=== PATIENT | male | born 1955 | race Caucasian/White ===

== ENCOUNTER 2016-08-07 11:54 | Inpatient (IN) | payer OTHER ==
[~2016-08-07] VITALS: Ht 152.4 cm; Wt 64.7 kg
[~2016-08-07 11:54] MED LIST: ACET-1256 PO; ACET-1311 PO; ALBU0.5N2 NEB; ALUMSUS2 PO; AMINLIQ2 PO; BISA1SUP4 RE; CARB1SOL8 OTL; CLR10 PO; DEXL30CA5 PO; DEXTSYP41 PO; DIMECRE; DLN/100 PO; DOCU-94 PO; FLM4 PO; IMD/2 PO; KPH250 PO; LACT1TAB4 PO; MENTOIN TOP; MRLP17X PO; MTHH1 PO; MULT-506 PO; NEOMOIN3 TOP; POTA1CAP2 PO; SENN-91 PO; SODIENE PR; STARPOW19
[2016-08-07] MEDS ORDERED: SODIUM CHLORIDE 0.9% 1000ML 1,000 ML IV STA ×2 (12:34)
--- NOTE | 2016-08-07 13:18 | DIAGNOSTIC IMAGING REPORT ---
SINGLE VIEW CHEST CLINICAL HISTORY: Generalized weakness. FINDINGS: An AP, portable, upright chest radiograph is compared to study dated 06/07/2014 and correlated with chest CT dated 12/19/2012. The examination is significantly degraded by portable technique and patient rotation. The heart is top normal for projection. There is prominence of the central pulmonary vasculature. There is minimal bibasilar atelectasis. No airspace consolidation is seen typical for pneumonia and there is no large pleural effusion. No pneumothorax is seen. The skeletal structures are osteopenic. The bony thorax is grossly intact. IMPRESSION: 1. There is prominence of the central pulmonary vasculature. Cortical clinically for evidence of mild congestive failure. 2. No airspace consolidation is seen typical for pneumonia and there is no large pleural effusion. Electronically signed by: Lucius Stiles M.D. 08/07/2016 1:17 PM Dictated Date/Time: 08/07/2016 1:15 PM
[2016-08-07] MEDS ORDERED: POTA10TA PO (13:29)
[2016-08-07] MEDS ORDERED: CARV3.122 PO (13:29)
[2016-08-07] MEDS ORDERED: ZNTT/150 PO (13:29)
[2016-08-07] MEDS ORDERED: LOSA1TAB PO (13:29)
[2016-08-07] MEDS ORDERED: MTHH1 PO (13:29)
[2016-08-07] MEDS ORDERED: MULTTAB63 PO (13:36)
[2016-08-07] MEDS ORDERED: IPRASOL4 INH (13:43)
[2016-08-07] MEDS ORDERED: ALUM-30 PO (13:43)
[2016-08-07 13:48] LABS: URINE APPEARANCE CLOUDY (CLEAR); URINE BILIRUBIN NEG (NEG); URINE COLOR DK YELLOW; URINE EPITHELIAL CELL AUTO >30 /lpf (0-5); URINE NITRITE POS (NEG); URINE PH 6.5 (4.5-7.5); URINE SPECIFIC GRAVITY 1.025 (1.000-1.030); UROBILINOGEN NEG (NEG)
[2016-08-07 14:01] LABS: MANUAL MICROSCOPIC REQUIRED? NO; REVIEW REQ? YES
[2016-08-07 14:01] LABS: ALT/SGPT 14 U/L (12-78); BLOOD UREA NITROGEN 17 mg/dl (7-18); BUN/CREATININE RATIO 15.7 (10-20); CALCIUM 8.5 mg/dl (8.5-10.1); CARBON DIOXIDE 27 mmol/L (21-32); CHLORIDE 116 mmol/L (98-107); GLUCOSE 123 mg/dl (70-99); MAGNESIUM 2.5 mg/dl (1.8-2.4); POTASSIUM 3.8 mmol/L (3.5-5.1); SODIUM 150 mmol/L (136-145)
[2016-08-07 14:03] LABS: BASO % 0.2 %; BASO ABS # 0.03 K/uL (0-0.2); COMPLETE YES; EOS % 0.2 %; HEMATOCRIT 41.4 % (42-52); IG% 0.4 %; LYMPH % 9.4 %; LYMPH ABS # 1.53 K/uL (1.2-3.4); MEAN CELL VOLUME 104.8 fL (80-100); MEAN CORPUSCULAR HEMOGLOBIN 35.7 pg (25-34); MEAN CORPUSCULAR HGB CONC 34.1 g/dl (32-36); MEAN PLATELET VOLUME 10.3 fL (7.4-10.4); MONO % 3.4 %; NEUT % 86.4 %; PLATELET COUNT 300 K/uL (130-400); RED BLOOD COUNT 3.95 M/uL (4.7-6.1); WHITE BLOOD COUNT 16.32 K/uL (4.8-10.8)
[2016-08-07 14:11] LABS: ALKALINE PHOSPHATASE 126 U/L (45-117); AST/SGOT 9 U/L (15-37); THYROID STIMULATING HORMONE 0.961 uIu/ml (0.300-4.500)
[2016-08-07] MEDS ORDERED: SODIUM CHLORIDE 0.9% 500ML 500 ML IV STA (14:45)
[2016-08-07] MEDS ORDERED: CEFTRIAXONE SOD INJ 1 GM ADDVIAL IV STA (14:45)
[2016-08-07 15:18] VITALS: Ht 152.4 cm; Wt 64.7 kg
--- NOTE | 2016-08-07 15:46 | EMERGENCY ROOM VISIT NOTE ---
History Report prepared by Hussain: Christopher Bella Under the Supervision of: Dr. Anuel Valverde M.D. First contact with patient: 12:29 Chief Complaint: ILLNESS Stated Complaint: AMS/FEVER/NYPOTENSION History of Present Illness The patient is a 61 year old male who presents to the Emergency Room with complaints of acute altered mental status. The patient came to the ED from [facility]. Their records indicate that the patient became altered last night. He also had a "gurgling episode" when the nurses were feeding him last night. The patient was febrile upon arrival, per ED nurse. He is nonverbal at baseline but has become less responsive. He has a chronic urinary catheter in place. Complete history is limited secondary to unresponsiveness. Source of History: transfer records, nursing staff History Limited By: other (unresponsiveness) Onset: last night Position: other (mentation) Quality: other (altered mental status) Timing: other (acute) Associated Symptoms: + fevers Review of Systems ROS is limited secondary to unresponsiveness. Past Medical & Surgical Medical Problems: (1) Blind (2) Down syndrome (3) DVT of lower extremity, bilateral (4) Graves disease (5) MRSA (methicillin resistant Staphylococcus aureus) (6) Neurogenic bladder (7) Recurrent UTI (8) Seizures (9) Urinary retention Surgical Problems: (1) History of total right hip replacement (2) S/P IVC filter (3) S/P TURP Family History Cancer Hypertension Kidney disease Kidney stones Social History Smoking Status: Never Smoker Alcohol Use: none Drug Use: none Housing Status: other Current/Historical Medications Scheduled Acetaminophen (Tylenol), 500 MG PO TID Carvedilol (Coreg), 3.125 MG PO Q12 Loratadine (Claritin), 10 MG PO QAM Losartan Potassium (Cozaar), 25 MG PO QAM Methenamine Hippurate (Methenamine Hippurate), 1 GM PO QAM Multiple Vitamins W/ Minerals (Therems M), 1 TAB PO QAM Phenytoin Sodium (Dilantin), 100 MG PO TID Phosphorus (K-Phos Neutral), 250 MG PO BID Potassium Chloride (K-Tabs), 10 MEQ PO DAILY Ranitidine (Zantac), 150 MG PO HS Sennosides-Docusate Sodium (Senna S), 1 TAB PO QAM Scheduled PRN Acetaminophen (Tylenol), 650 MG PO Q6 PRN for Pain or Fever Alum & Mag Hydrox-Simethicone (Mylanta), 30 ML PO BID PRN for DYSPEPSIA Bisacodyl (Bisacodyl Laxative), 10 MG RE DAILY PRN for Constipation Ipratropium-Albuterol (Duoneb), 1 TREATMENT INH Q8 PRN for Cough Sodium Phosphate/Biphosphate (Fleet Enema), 1 EA WA UD PRN for no bm after suppository Allergies Coded Allergies: Iodine (Verified Allergy, Unknown, 09/05/15) Oxycodone (Verified Allergy, Unknown, TOLERATES ACETAMINOPHEN, 09/05/15) Grapefruit (Verified Adverse Reaction, Unknown, Avoids grapefruit r/t contraindication w/ meds., 09/05/15) Uncoded Allergies: PERFUMES AND DYES (Allergy, Unknown, unk, 09/05/15) Physical Exam Vital Signs Date Time Temp Pulse Resp B/P Pulse Ox O2 Delivery O2 Flow Rate FiO2 08/07/16 15:18 Nasal Cannula 08/07/16 15:00 93 16 109/73 95 08/07/16 14:31 109/64 08/07/16 14:30 84 14 97 08/07/16 14:00 90 14 122/79 99 08/07/16 13:40 89 16 142/90 99 Nasal Cannula 2.0 08/07/16 13:13 94 20 125/86 95 Room Air 08/07/16 12:46 93 21 109/79 96 Nasal Cannula 2.0 08/07/16 12:38 94 Nasal Cannula 08/07/16 12:19 96 24 120/80 93 Nasal Cannula 2.0 08/07/16 12:14 94 Nasal Cannula 2.0 08/07/16 12:13 88 Room Air 08/07/16 12:02 37.7 105 26 130/81 94 Room Air 08/07/16 12:02 103 Physical Exam GENERAL: Sleepy but semi-arousable to verbal stimuli, in no distress. HENT: Normocephalic, atraumatic. Oropharynx unremarkable. EYES: Normal conjunctiva. Sclera non-icteric. Cornea are opacified bilaterally. NECK: Supple. No nuchal rigidity. FROM. No JVD. RESPIRATORY: Scattered rhonchi. CARDIAC: Tachycardic, normal rhythm. Extremities warm and well perfused. Pulses equal. ABDOMEN: Soft, non-distended. No tenderness to palpation. No rebound or guarding. No masses. RECTAL: Deferred. MUSCULOSKELETAL: Chest examination reveals no tenderness. The back is symmetrical on inspection without obvious abnormality. There is no CVA tenderness to palpation. No joint edema. LOWER EXTREMITIES: 1+ lower extremity edema. Calves are equal size bilaterally and non-tender. No discoloration. NEURO: Altered sensorium. No sensory or motor deficits noted. SKIN: No rash or jaundice noted. Medical Decision & Procedures ER Provider Diagnostic Interpretation: X-ray: Per my interpretation, radiologist review. SINGLE VIEW CHEST CLINICAL HISTORY: Generalized weakness. FINDINGS: An AP, portable, upright chest radiograph is compared to study dated 06/07/2014 and correlated with chest CT dated 12/19/2012. The examination is significantly degraded by portable technique and patient rotation. The heart is top normal for projection. There is prominence of the central pulmonary vasculature. There is minimal bibasilar atelectasis. No airspace consolidation is seen typical for pneumonia and there is no large pleural effusion. No pneumothorax is seen. The skeletal structures are osteopenic. The bony thorax is grossly intact. IMPRESSION: 1. There is prominence of the central pulmonary vasculature. Cortical clinically for evidence of mild congestive failure. 2. No airspace consolidation is seen typical for pneumonia and there is no large pleural effusion. Electronically signed by: Lucius Stiles M.D. 08/07/2016 1:17 PM Dictated Date/Time: 08/07/2016 1:15 PM Laboratory Results 08/07/16 13:10 Red Blood Count 3.95, Mean Corpuscular Volume 104.8, Mean Corpuscular Hemoglobin 35.7, Mean Corpuscular Hemoglobin Concent 34.1, Mean Platelet Volume 10.3, Neutrophils (%) (Auto) 86.4, Lymphocytes (%) (Auto) 9.4, Monocytes (%) ( Auto) 3.4, Eosinophils (%) (Auto) 0.2, Basophils (%) (Auto) 0.2, Neutrophils # ( Auto) 14.12, Lymphocytes # (Auto) 1.53, Monocytes # (Auto) 0.55, Eosinophils # ( Auto) 0.03, Basophils # (Auto) 0.03 08/07/16 13:10 Test 08/07/16 12:58 08/07/16 13:08 08/07/16 13:10 08/07/16 13:16 Influenza Type A Antigen Neg for Influ A (NEG) Influenza Type B Antigen Neg for Influ B (NEG) Bedside Lactic Acid Venous 1.41 mmol/L (0.90-1.70) White Blood Count 16.32 K/uL (4.8-10.8) Red Blood Count 3.95 M/uL (4.7-6.1) Hemoglobin 14.1 g/dL (14.0-18.0) Hematocrit 41.4 % (42-52) Mean Corpuscular Volume 104.8 fL (80-100) Mean Corpuscular Hemoglobin 35.7 pg (25-34) Mean Corpuscular Hemoglobin Concent 34.1 g/dl (32-36) Platelet Count 300 K/uL (130-400) Mean Platelet Volume 10.3 fL (7.4-10.4) Neutrophils (%) (Auto) 86.4 % Lymphocytes (%) (Auto) 9.4 % Monocytes (%) (Auto) 3.4 % Eosinophils (%) (Auto) 0.2 % Basophils (%) (Auto) 0.2 % Neutrophils # (Auto) 14.12 K/uL (1.4-6.5) Lymphocytes # (Auto) 1.53 K/uL (1.2-3.4) Monocytes # (Auto) 0.55 K/uL (0.11-0.59) Eosinophils # (Auto) 0.03 K/uL (0-0.5) Basophils # (Auto) 0.03 K/uL (0-0.2) RDW Standard Deviation 62.0 fL (36.4-46.3) RDW Coefficient of Variation 16.1 % (11.5-14.5) Immature Granulocyte % (Auto) 0.4 % Immature Granulocyte # (Auto) 0.06 K/uL (0.00-0.02) Anion Gap 7.0 mmol/L (3-11) Est Creatinine Clear Calc Drug Dose 57.2 ml/min Estimated GFR () 84.7 Estimated GFR (Non- 73.1 BUN/Creatinine Ratio 15.7 (10-20) Calcium Level 8.5 mg/dl (8.5-10.1) Magnesium Level 2.5 mg/dl (1.8-2.4) Total Bilirubin 0.3 mg/dl (0.2-1) Direct Bilirubin < 0.1 mg/dl (0-0.2) Aspartate Amino Transf (AST/SGOT) 9 U/L (15-37) Alanine Aminotransferase (ALT/SGPT) 14 U/L (12-78) Alkaline Phosphatase 126 U/L (45-117) Troponin I < 0.015 ng/ml (0-0.045) Total Protein 7.5 gm/dl (6.4-8.2) Albumin 2.7 gm/dl (3.4-5.0) Lipase 65 U/L (73-393) Thyroid Stimulating Hormone (TSH) 0.961 uIu/ml (0.300-4.500) Urine Color DK YELLOW Urine Appearance CLOUDY (CLEAR) Urine pH 6.5 (4.5-7.5) Urine Specific [place] 1.025 (1.000-1.030) Urine Protein 2+ (NEG) Urine Glucose (UA) NEG (NEG) Urine Ketones NEG (NEG) Urine Occult Blood 3+ (NEG) Urine Nitrite POS (NEG) Urine Bilirubin NEG (NEG) Urine Urobilinogen NEG (NEG) Urine Leukocyte Esterase LARGE (NEG) Urine WBC (Auto) >30 /hpf (0-5) Urine RBC (Auto) >30 /hpf (0-4) Urine Hyaline Casts (Auto) /lpf (0-5) Urine Epithelial Cells (Auto) >30 /lpf (0-5) Urine Bacteria (Auto) 1+ (NEG) Urine Pathogenic Casts /lpf (0) Laboratory results reviewed by me Medications Administered Medications (Trade) Dose Ordered Sig/Isaak Route Start Time Stop Time Status Last Admin Dose Admin Sodium Chloride 1,000 ml @ 125 mls/hr Q8H STAT IV 08/07/16 12:34 08/07/16 20:33 08/07/16 13:40 125 MLS/HR Sodium Chloride 1,000 ml @ 999 mls/hr Q1H1M STAT IV 08/07/16 12:34 08/07/16 13:34 DC 08/07/16 12:43 999 MLS/HR Sodium Chloride (Nss 500ml) 500 ml @ 999 mls/hr Q31M STAT IV 08/07/16 14:45 08/07/16 15:15 DC 08/07/16 15:24 999 MLS/HR Ceftriaxone Sodium (Rocephin Inj) 1 gm NOW STAT IV 08/07/16 14:45 08/07/16 14:46 DC 08/07/16 15:23 1 GM ECG Indication: altered mental status Rate (beats per minute): 104 Rhythm: sinus tachycardia Findings: no acute ischemic change, no ectopy, other (LVH) ED Course 1233: The patient was evaluated in room B1. A complete history and physical exam was performed. 1234: NSS 1000 ml @ 999 mls/hr, NSS 1000 ml @ 125 mls/hr. 1400: The patient was moved to room B12b. He is more responsive now. 1445: Rocephin 1 gm IV, NSS 500 ml @ 999 mls/hr. 1456: Discussed the case with Dr. Finch [facility]. The patient will be evaluated. Medical Decision Prior records/ancillary studies reviewed and summarized above. Nursing notes reviewed and agree them. The patient's history was concerning for altered mental status. Differential diagnosis: Etiologies such as infection, hypoglycemia, electrolyte abnormalities, cardiac sources, intracerebral event, toxicologic, neurologic, as well as others were entertained. Physical examination: As above. ER treatment provided: IV Lock Normal saline hydration with improvement of his mental status IV Rocephin On reassessment the patient felt better. Diagnostics interpretation by me: ECG: Nonischemic The labs revealed a mild leukocytosis. His catheter panel was unremarkable. His urinalysis revealed signs of infection. Cardiac markers negative. Lactate negative. Blood and urine cultures pending. Imaging studies: Chest x-ray as above Consultation: A consultation was placed with the hospitalist. The case was discussed and diagnostics were reviewed. The patient was evaluated in the ER for further treatment. The chart was completed utilizing [employer] Speech voice recognition software. Grammatical errors, random word insertions, pronoun errors, and incomplete sentences are an occasional consequence of this system due to software limitations, ambient noise, and hardware issues. Any formal questions or concerns about the content, text, or information contained within the body of this dictation should be directly addressed to the physician for clarification. Consults Time Called: 1450 Consulting Physician: Dr. Finch [facility]. Returned Call: [phone]: Discussed the case with Dr. Finch, [facility] Hospitalist. The patient will be evaluated. Impression Primary Impression: Altered mental status Additional Impression: UTI (urinary tract infection) Scribe Attestation The scribe's documentation has been prepared under my direction and personally reviewed by me in its entirety. I confirm that the note above accurately reflects all work, treatment, procedures, and medical decision making performed by me. Departure Information Dispostion Being Evaluated By Hospitalist Referrals WallaceSummer (PCP) Patient Instructions My [facility] Health Problem Qualifiers
[2016-08-07] MEDS ORDERED: ACETAMINOPHEN 325 MG TAB PO PRN (16:00)
[2016-08-07] MEDS ORDERED: ONDANSETRON INJ 2 MG/ML 2 ML VIAL IV PRN (16:00)
[2016-08-07] MEDS: DEXTROSE 5% 1000ML 1,000 ML IV SCH ×2 (16:30→20:44)
--- NOTE | 2016-08-07 16:33 | History and Physical ---
History & Physical Date & Time of Service: Aug 07, 2016 at 16:09 Chief Complaint: Ams/Fever/Nypotension Primary Care Physician: Summer Motta History of Present Illness Source: hospital records, other ([facility] records) This patient is a 61-year-old male with severe intellectual impairment that resides at [facility] who is reportedly transferred to the emergency department with worsening mental status and poor oral intake. The patient reportedly would not eat for the staff yesterday which is new. He also was more lethargic. The patient had a baseline is nonverbal, blind and bedbound. The reported temperature from outpatient records was 37.6. The staff did note that he was choking and gurgling while trying to take his pills yesterday. There were no reports of hypoxia. There is no obtainable history from the patient as he is nonverbal. The patient has a history of neurogenic bladder with an indwelling Barnes catheter. Workup in the emergency department is consistent for leukocytosis of 16,000. Sodium is 150. Urine appears infected. The patient has no family. his legal guardian per court order is Amicus. He is listed as a full code. 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 Surgical Problems: (1) History of total right hip replacement Status: Chronic (2) S/P IVC filter Status: Chronic (3) S/P TURP Status: Chronic Family History Cancer Hypertension Kidney disease Kidney stones Unobtainable Social History Smoking Status: Never Smoker Drug Use: none Housing status: [facility] ([facility]) Immunizations History of Influenza Vaccine: Yes Influenza Vaccine Date: Jan 25, 2015 History of Tetanus Vaccine?: Yes Tetanus Immunization Date: Oct 20, 2009 Pneumococcal Date: Feb 19, 2010 Multi-Drug Resistant Organisms History of MDRO: Yes Type of MDRO: MRSA Allergies Coded Allergies: Iodine (Verified Allergy, Unknown, 09/05/15) Oxycodone (Verified Allergy, Unknown, TOLERATES ACETAMINOPHEN, 09/05/15) Grapefruit (Verified Adverse Reaction, Unknown, Avoids grapefruit r/t contraindication w/ meds., 09/05/15) Uncoded Allergies: PERFUMES AND DYES (Allergy, Unknown, unk, 09/05/15) Home Medications Scheduled Acetaminophen (Tylenol), 500 MG PO TID Carvedilol (Coreg), 3.125 MG PO Q12 Loratadine (Claritin), 10 MG PO QAM Losartan Potassium (Cozaar), 25 MG PO QAM Methenamine Hippurate (Methenamine Hippurate), 1 GM PO QAM Multiple Vitamins W/ Minerals (Therems M), 1 TAB PO QAM Phenytoin Sodium (Dilantin), 100 MG PO TID Phosphorus (K-Phos Neutral), 250 MG PO BID Potassium Chloride (K-Tabs), 10 MEQ PO DAILY Ranitidine (Zantac), 150 MG PO HS Sennosides-Docusate Sodium (Senna S), 1 TAB PO QAM Scheduled PRN Acetaminophen (Tylenol), 650 MG PO Q6 PRN for Pain or Fever Alum & Mag Hydrox-Simethicone (Mylanta), 30 ML PO BID PRN for DYSPEPSIA Bisacodyl (Bisacodyl Laxative), 10 MG RE DAILY PRN for Constipation Ipratropium-Albuterol (Duoneb), 1 TREATMENT INH Q8 PRN for Cough Sodium Phosphate/Biphosphate (Fleet Enema), 1 EA KS UD PRN for no bm after suppository Review of Systems Unobtainable Physical Exam Vital Signs Date Time Temp Pulse Resp B/P Pulse Ox O2 Delivery O2 Flow Rate FiO2 08/07/16 15:18 Nasal Cannula 08/07/16 15:00 93 16 109/73 95 08/07/16 14:31 109/64 08/07/16 14:30 84 14 97 08/07/16 14:00 90 14 122/79 99 08/07/16 13:40 89 16 142/90 99 Nasal Cannula 2.0 08/07/16 13:13 94 20 125/86 95 Room Air 08/07/16 12:46 93 21 109/79 96 Nasal Cannula 2.0 08/07/16 12:38 94 Nasal Cannula 08/07/16 12:19 96 24 120/80 93 Nasal Cannula 2.0 08/07/16 12:14 94 Nasal Cannula 2.0 08/07/16 12:13 88 Room Air 08/07/16 12:02 37.7 105 26 130/81 94 Room Air 08/07/16 12:02 103 General Appearance: + pertinent finding (61 y/o male, no acute distress. Unresponsive to verbal stimuli) Eyes: + pertinent finding (scarring noted over corneas bilaterally) ENT: + pertinent finding (orange colored plaque noted on the ) Neck: no JVD Respiratory/Chest: lungs clear Cardiovascular: + tachycardia (mildly tachycardic. No murmur.) Abdomen/GI: normal bowel sounds, soft, + pertinent finding (focal tenderness appreciated.) Extremities/Musculoskelatal: no pedal edema, + pertinent finding (large well- healed incisional scar noted over the right lateral hip.) Neurologic/Psych: + pertinent finding (patient does not respond to verbal stimuli. He is moving his upper extremities. He does move extremities one sternal rub was performed.) Skin: warm/dry, + pertinent finding (pale) Diagnostics Laboratory Results Results Past 24 Hours Test 08/07/16 12:58 08/07/16 13:08 08/07/16 13:10 08/07/16 13:16 Range/Units Influenza Type A Antigen Neg for Influ A NEG Influenza Type B Antigen Neg for Influ B NEG Bedside Lactic Acid Venous 1.41 0.90-1.70 mmol/L White Blood Count 16.32 4.8-10.8 K/uL Red Blood Count 3.95 4.7-6.1 M/uL Hemoglobin 14.1 14.0-18.0 g/dL Hematocrit 41.4 42-52 % Mean Corpuscular Volume 104.8 80-100 fL Mean Corpuscular Hemoglobin 35.7 25-34 pg Mean Corpuscular Hemoglobin Concent 34.1 32-36 g/dl Platelet Count 300 130-400 K/uL Mean Platelet Volume 10.3 7.4-10.4 fL Neutrophils (%) (Auto) 86.4 % Lymphocytes (%) (Auto) 9.4 % Monocytes (%) (Auto) 3.4 % Eosinophils (%) (Auto) 0.2 % Basophils (%) (Auto) 0.2 % Neutrophils # (Auto) 14.12 1.4-6.5 K/uL Lymphocytes # (Auto) 1.53 1.2-3.4 K/uL Monocytes # (Auto) 0.55 0.11-0.59 K/uL Eosinophils # (Auto) 0.03 0-0.5 K/uL Basophils # (Auto) 0.03 0-0.2 K/uL RDW Standard Deviation 62.0 36.4-46.3 fL RDW Coefficient of Variation 16.1 11.5-14.5 % Immature Granulocyte % (Auto) 0.4 % Immature Granulocyte # (Auto) 0.06 0.00-0.02 K/uL Sodium Level 150 136-145 mmol/L Potassium Level 3.8 3.5-5.1 mmol/L Chloride Level 116 98-107 mmol/L Carbon Dioxide Level 27 21-32 mmol/L Anion Gap 7.0 3-11 mmol/L Blood Urea Nitrogen 17 7-18 mg/dl Creatinine 1.10 0.60-1.40 mg/dl Est Creatinine Clear Calc Drug Dose 57.2 ml/min Estimated GFR () 84.7 Estimated GFR (Non- 73.1 BUN/Creatinine Ratio 15.7 10-20 Random Glucose 123 70-99 mg/dl Calcium Level 8.5 8.5-10.1 mg/dl Magnesium Level 2.5 1.8-2.4 mg/dl Total Bilirubin 0.3 0.2-1 mg/dl Direct Bilirubin < 0.1 0-0.2 mg/dl Aspartate Amino Transf (AST/SGOT) 9 15-37 U/L Alanine Aminotransferase (ALT/SGPT) 14 12-78 U/L Alkaline Phosphatase 126 45-117 U/L Troponin I < 0.015 0-0.045 ng/ml Total Protein 7.5 6.4-8.2 gm/dl Albumin 2.7 3.4-5.0 gm/dl Lipase 65 73-393 U/L Thyroid Stimulating Hormone (TSH) 0.961 0.300-4.500 uIu/ml Urine Color DK YELLOW Urine Appearance CLOUDY CLEAR Urine pH 6.5 4.5-7.5 Urine Specific [place] 1.025 1.000-1.030 Urine Protein 2+ NEG Urine Glucose (UA) NEG NEG Urine Ketones NEG NEG Urine Occult Blood 3+ NEG Urine Nitrite POS NEG Urine Bilirubin NEG NEG Urine Urobilinogen NEG NEG Urine Leukocyte Esterase LARGE NEG Urine WBC (Auto) >30 0-5 /hpf Urine RBC (Auto) >30 0-4 /hpf Urine Hyaline Casts (Auto) 0-5 /lpf Urine Epithelial Cells (Auto) >30 0-5 /lpf Urine Bacteria (Auto) 1+ NEG Urine Pathogenic Casts 0 /lpf Test 08/07/16 15:54 Range/Units Microbiology Results 08/07/16 Blood Culture, Received Pending 08/07/16 Blood Culture, Received Pending 08/07/16 Urine Culture, Received Pending Diagnostic Radiology Patient: MEE NORWOOD Address1: [address] [place] [address] Rec: [id number] Address2: Acct ID: [id number] [facility] Zip: [place] [address] Date: 1955 Sex: M Room/Bed: Ref Phy: Maximus Chowdary M.D. SC: TIM Att Phy: Report #: [id number] Leslie Phy: [employer] [place] Test: CXR1P Admit Phy: Director Of Recruiting: FITO Interpreting Phy: Lucius Stiles M.D. Diagnosis: AMS/FEVER/NYPOTENSION Ordering Phy: Anuel Valverde MD Service Date: 08/07/16 Admit Date: 08/07/16 MNE: [id number] CONF: DICTATED BY: Lucius Stiles M.D.]] CC: [facility] Maximus Chowdary M.D. Maciejczyk, John F., MD Endcc: [~ rep ct add3]] SINGLE VIEW CHEST CLINICAL HISTORY: Generalized weakness. FINDINGS: An AP, portable, upright chest radiograph is compared to study dated 06/07/2014 and correlated with chest CT dated 12/19/2012. The examination is significantly degraded by portable technique and patient rotation. The heart is top normal for projection. There is prominence of the central pulmonary vasculature. There is minimal bibasilar atelectasis. No airspace consolidation is seen typical for pneumonia and there is no large pleural effusion. No pneumothorax is seen. The skeletal structures are osteopenic. The bony thorax is grossly intact. IMPRESSION: 1. There is prominence of the central pulmonary vasculature. Cortical clinically for evidence of mild congestive failure. 2. No airspace consolidation is seen typical for pneumonia and there is no large pleural effusion. Electronically signed by: Lucius Stiles M.D. 08/07/2016 1:17 PM Dictated Date/Time: 08/07/2016 1:15 PM The status of this report is Signed. Draft = Not yet reviewed or approved by Radiologist. Signed = Reviewed and approved by Radiologist. <AttendingPhy></AttendingPhy> <FamilyPhy>Maximus Chowdary M.D.</FamilyPhy > <PrimaryPhy>[facility]</PrimaryPhy> <UnitNumber>[id number]</UnitNumber> < VisitNumber>[id number]</VisitNumber> <PatientName>MEE NORWOOD</PatientName > <DateOfBirth>1955</DateOfBirth> <Location>C.EDB</Location> <ServiceDate> 08/07/16</ServiceDate> <MNE>ESINDI</MNE> <OrderingPhy>Anuel Valverde MD</ OrderingPhy> <OrderingPhyMNE>f EKG Sinus tachycardia 104 bpm Impression Assessment and Plan 61-year-old male with significant intellectual impairment, Down syndrome transferred to the emergency department with reportedly altered mental status. Metabolic encephalopathy likely secondary to UTI-CAUTI. Cannot rule out aspiration pneumonia with a reported history of the patient choking on his chocolate milk and pills -Broad-spectrum antibiotic coverage with vancomycin and Zosyn -Repeat chest x-ray in the morning -Follow urine culture. Patient grew out Proteus mirabilis in March 2016 -Follow CBC -Speech eval. -NPO for now Hypernatremia-likely secondary to dehydration -Change IV fluids to D5W @ 100 cc per hour -Recheck PRP today at 1900 hrs. History of seizure disorder -Change home dose of Dilantin 100 mg po TID to IV for now as the patient is not taking po -Check Dilantin level Pressure ulcer on the buttock stage II -Wound consult placed Hypertension -Patient's outpatient regimen is typically carvedilol 3.125 mg po BID--> substitute metoprolol IV for now -He also takes Cozaar 25 mg po QAM--> this will additionally be held Hydralazine 10 mg IV q 6 hr PRN History of neurogenic bladder/urinary retention with indwelling Barnes catheter -barnes changed in ER Hx Graves dz -TSH WNL in the ER Hx DVT-IVC filter in place -proph heparin CODE STATUS -LEVEL I FULL CODE THIS NEEDS TO BE ADDRESSED GIVE POOR QUALITY OF LIFE Advanced Directives Existing Living Will: Yes Existing Power of Roller Skates Assembler: No (unsure) Resuscitation Status FULL RESUSCITATION VTE Prophylaxis VTE Risk Assessment Done? Y/N: Yes Risk Level: Moderate Given or contraindicated: Unfractionated heparin SQ, T.E.D. Stockings, SCD's Reviewed: Pt Seen/Exam by Me History Physician Airplane Inspector Supervision Note: I interviewed and examined the patient. Discussed with VICKY Grant and agree with findings and plan as documented in the note. Any exceptions or clarifications are listed here: Patient is a 61-year-old male with Down syndrome, who is nonverbal and bedbound as well as legally blind. He was brought in for being less responsive and not able to take any medications or food by mouth due to altered mental status. He was found to have grossly abnormal urine in his Barnes was exchanged in the ER. He is also hypernatremic and dehydrated with hypotension. An elevated white blood cell count of 16. He was given normal saline boluses in the ER and then switched to D5W upon admission. Repeat chemistry later on this evening showed slight worsening of his hypernatremia to a sodium of 152 and chloride of 122, probably related to being given normal saline earlier. Review of previous admission shows a severely low a.m. cortisol level of 1 in the past. Vital signs reviewed and is hypotensive at times Lying in bed, does respond to tactile stimulation, but is nonverbal, does not follow commands, has eyes closed Oropharynx with severely dry mucous membranes Regular rate and rhythm no murmurs gallops or rubs Clear to auscultation bilaterally breathing is unlabored no wheezes crackles or rhonchi Abdomen soft nontender nondistended positive bowel sounds Extremities no edema, 1+ distalis pedis pulses bilaterally Skin no rashes 61-year-old male with severe intellectual disability and Down syndrome, bedbound with chronic indwelling Barnes catheter, here with UTI and sepsis, acute metabolic encephalopathy. He has a history of MRSA in the past and comes from a [facility]. -Start IV Zosyn and IV vancomycin and follow vancomycin troughs -Follow CBC, leukocytosis 30 improving -For his hypernatremia, will continue D5W at 100 mL's per hour and repeat PRP in the morning -Follow urine and blood cultures -Repeat chest x-ray in the morning to ensure no development of aspiration pneumonia given difficulty swallowing and gurgling on his chocolate milk at the [facility] prior to admission-chest x-ray may have been clear today due to severe dehydration Documented By: Stormy Finch
[2016-08-07] MEDS ORDERED: VANCOMYCIN CONSULT ACTIVE PRN (16:45)
[2016-08-07] MEDS ORDERED: HydrALAZINE HCL 20 MG/ML VIAL IV. PRN (16:45)
[2016-08-07] MEDS ORDERED: ACETAMINOPHEN 325 MG SUPP PR PRN (17:00)
[2016-08-07] MEDS ORDERED: VANCOMYCIN INJ 1,600 MG in SODIUM CHLORIDE 0.9% 500ML 500 ML IV ONE (17:00)
[2016-08-07] MEDS ORDERED: PIPERACILL/TAZOBAC IV 4.5 GM in DEXTROSE 5% 100ML IV ONE (17:15)
[2016-08-07] MEDS ORDERED: PIPERACILL/TAZOBAC CONSULT ACTIVE PRN (17:15)
--- NOTE | 2016-08-07 17:18 | Pharmacy Progress Note ---
Pharmacy Antibiotic Consult Date of Service: Aug 07, 2016. Pharmacy Dosing Scope Pharmacy is consulted to initiate Vanco/Zosyn IV dosing therapy, order appropriate labs and adjust drug dose/frequency. Subjective The patient is a 61 year old male admitted on . Objective Height (Feet): 5 Height (Inches): 0.00 Weight (Kilograms): 64.700 Lab Results (24hrs): Item Value Date Time Creatinine 1.10 mg/dl 08/07/16 1310 Est Creatinine Clear Calc Drug Dose 57.2 ml/min 08/07/16 1310 Laboratory Tests Test 08/07/16 13:10 08/07/16 16:17 BUN/Creatinine Ratio 15.7 Blood Urea Nitrogen 17 mg/dl Creatinine 1.10 mg/dl White Blood Count 16.32 K/uL Red Blood Count 3.95 M/uL Hemoglobin 14.1 g/dL Hematocrit 41.4 % Mean Corpuscular Volume 104.8 fL Mean Corpuscular Hemoglobin 35.7 pg Mean Corpuscular Hemoglobin Concent 34.1 g/dl Platelet Count 300 K/uL Mean Platelet Volume 10.3 fL Neutrophils (%) (Auto) 86.4 % Lymphocytes (%) (Auto) 9.4 % Monocytes (%) (Auto) 3.4 % Eosinophils (%) (Auto) 0.2 % Basophils (%) (Auto) 0.2 % Neutrophils # (Auto) 14.12 K/uL Lymphocytes # (Auto) 1.53 K/uL Monocytes # (Auto) 0.55 K/uL Eosinophils # (Auto) 0.03 K/uL Basophils # (Auto) 0.03 K/uL Micro Results: Item Value Date Time Urine Culture Received 08/07/16 1310 Urine , Clean Catch Pending Blood Culture Received 08/07/16 1310 Blood Pending Blood Culture Received 08/07/16 1215 Blood Pending Assessment & Plan Pt is a 61yo M being empirically tx with Vanco/Zosyn for a complicated UTI. Pt did receive a one time dose of Rocephin in the ED. Pt has a h/o of MRSA and CAR SEAT MAKER in the urine. Renal fxn looks to be slightly elevated to his baseline. Pt population p'kinetics: t1/2=13.4, ke=0.0517. Pt p/w fever, tachypnea, leukocytosis with a left shift, and tachycardia. Vanco Loading dose: Vanco 1600mg (25mg/kg) IV X 1 dose then: Vanco 1000mg (~15mg/kg) IV every 16 hours set to start at 0400 on 08/08. Goal trough level estimate: between 15 - 20 mcg/mL appropriate for UTI and sepsis. Trough level has been ordered for: prior to the third MD. Zosyn Spoke with ED RN, set to receive Zosyn 4.5g 30 min infsn X1 Then subsequent EI Zosyn 3.375g q8, appropraite for clinical status and eCrCl> 20cc/min Pharmacy will continue to follow and will adjust dose/frequency as necessary. Thank you
[2016-08-07] MEDS ORDERED: PIPERACILLIN/TAZOBACTAM 4.5 GM/100ML D5W ONE (17:28)
[2016-08-07 17:37] LABS: HEMATOCRIT 40.1 % (42-52); MEAN CELL VOLUME 104.2 fL (80-100); MEAN CORPUSCULAR HEMOGLOBIN 35.1 pg (25-34); MEAN CORPUSCULAR HGB CONC 33.7 g/dl (32-36); PLATELET COUNT 260 K/uL (130-400); RED BLOOD COUNT 3.85 M/uL (4.7-6.1)
[2016-08-07 17:44] LABS: INR 1.2 (0.9-1.1); PROTHROMBIN TIME (PATIENT) 12.9 SECONDS (9.0-12.0)
[2016-08-07] MEDS ORDERED: METOPROLOL TARTRATE 1 MG/ML VIAL IV. SCH (18:00)
[2016-08-07 18:38] VITALS: BP 89/66; PULSE 83; TEMP 36.4; O2SAT 93
[2016-08-07 20:42] LABS: BUN/CREATININE RATIO 17.4 (10-20); CALCIUM 7.9 mg/dl (8.5-10.1); CREATININE 0.82 mg/dl (0.60-1.40)
[2016-08-07 20:47] VITALS: BP 109/63; PULSE 85
[2016-08-07] MEDS: PHENYTOIN IV 100 MG in SYRINGE 0 ML IV SCH (20:57)
[2016-08-07] MEDS: SODIUM CHLOR 0.9% 10ML FLUSH 20 ML in SYRINGE 0 ML IV SCH (21:00)
[2016-08-07] MEDS ORDERED: PHENYTOIN IV 100 MG in SYRINGE 0 ML IV SCH (21:00)
[2016-08-07] MEDS: HEPARIN SOD 5000 UNIT/0.5 ML CARP SQ SCH (21:06)
[2016-08-07] MEDS: PIPERACILL/TAZOBAC IV 3.375 GM in DEXTROSE 5% 100ML 100 ML IV SCH (22:21)
[2016-08-07] MEDS ORDERED: HYDROCORTISONE IV 12.5 MG in SYRINGE 0 ML IV ONE (23:45)
[2016-08-08 00:29] VITALS: BP 113/66; PULSE 76; TEMP 36.4; O2SAT 97
[2016-08-08] MEDS ORDERED: VANCOMYCIN INJ 1,000 MG in SODIUM CHLORIDE 0.9% 250ML 250 ML IV SCH (04:00)
[2016-08-08] MEDS: PIPERACILL/TAZOBAC IV 3.375 GM in DEXTROSE 5% 100ML 100 ML IV SCH ×3 (05:36→21:39)
[2016-08-08] MEDS: HYDROCORTISONE IV 12.5 MG in SYRINGE 0 ML IV SCH ×2 (07:57→16:08)
[2016-08-08 08:00] VITALS: O2SAT 98
--- NOTE | 2016-08-08 08:28 | DIAGNOSTIC IMAGING REPORT ---
SINGLE VIEW CHEST CLINICAL HISTORY: Aspiration. FINDINGS: An AP, portable, upright chest radiograph is compared to study dated 08/07/2016 and correlated with chest CT dated 12/19/2012. The examination is degraded by portable technique and patient rotation. The heart is top normal for projection. There is prominence of the central pulmonary vasculature. There is minimal bibasilar atelectasis. There is developing patchy airspace consolidation at both lung bases, right greater than left. No large pleural effusion or pneumothorax is seen. The skeletal structures are osteopenic. The bony thorax is grossly intact. IMPRESSION: 1. There is persistent prominence of the central pulmonary vasculature. Cortical clinically for evidence of mild congestive failure. 2. There is developing patchy airspace consolidation at both lung bases, right greater than left. This could represent aspiration pneumonitis/developing pneumonia as clinically suspected. Electronically signed by: Lucius Stiles M.D. 08/08/2016 8:27 AM Dictated Date/Time: 08/08/2016 8:26 AM
[2016-08-08] MEDS: SODIUM CHLOR 0.9% 10ML FLUSH 20 ML in SYRINGE 0 ML IV SCH ×3 (08:38→20:36)
[2016-08-08] MEDS: PHENYTOIN IV 100 MG in SYRINGE 0 ML IV SCH ×3 (08:38→20:35)
[2016-08-08] MEDS: HEPARIN SOD 5000 UNIT/0.5 ML CARP SQ SCH ×2 (08:39→20:48)
[2016-08-08 08:50] LABS: MEAN CORPUSCULAR HGB CONC 33.8 g/dl (32-36)
[2016-08-08 08:51] LABS: HEMATOCRIT 35.8 % (42-52); MEAN CELL VOLUME 102.6 fL (80-100); MEAN CORPUSCULAR HEMOGLOBIN 34.7 pg (25-34); RED BLOOD COUNT 3.49 M/uL (4.7-6.1); WHITE BLOOD COUNT 7.69 K/uL (4.8-10.8)
[2016-08-08 09:14] LABS: BUN/CREATININE RATIO 13.1 (10-20); CALCIUM 8.3 mg/dl (8.5-10.1); CREATININE 0.75 mg/dl (0.60-1.40); MAGNESIUM 2.5 mg/dl (1.8-2.4); POTASSIUM 3.6 mmol/L (3.5-5.1)
[2016-08-08 09:26] VITALS: BP 109/85; PULSE 77; TEMP 36.4; O2SAT 98
[2016-08-08 10:08] LABS: BASO % 0.4 %; BASO ABS # 0.03 K/uL (0-0.2); COMPLETE YES; EOS % 0.7 %; IG% 0.7 %; LYMPH % 12.2 %; LYMPH ABS # 0.94 K/uL (1.2-3.4); MEAN PLATELET VOLUME 10.8 fL (7.4-10.4); MONO % 6.5 %; NEUT % 79.5 %; PLATELET COUNT 250 K/uL (130-400)
[2016-08-08] MEDS: SODIUM CHLOR 0.45% + 20MEQ KCL 1,000 ML IV SCH ×2 (11:02→19:17)
--- NOTE | 2016-08-08 12:26 | Pharmacy Progress Note ---
Pharmacy Antibiotic Prog Note Date of Service: Aug 08, 2016. Subjective: The patient is currently receiving VANCOMYCIN 1000mg IV every 16 hours. The patient is currently on day # 2 of VANCOMYCIN / ZOSYN IV therapy. Objective: Height (Feet): 5 Height (Inches): 0.00 Weight (Kilograms): 64.700 Lab Results (24hrs): Laboratory Tests Test 08/07/16 13:10 08/07/16 17:20 08/07/16 19:23 08/08/16 08:20 BUN/Creatinine Ratio 15.7 17.4 Blood Urea Nitrogen 17 mg/dl 14 mg/dl Creatinine 1.10 mg/dl 0.82 mg/dl White Blood Count 16.32 K/uL 11.30 K/uL 7.69 K/uL Red Blood Count 3.95 M/uL 3.49 M/uL Hemoglobin 14.1 g/dL 12.1 g/dL Hematocrit 41.4 % 35.8 % Mean Corpuscular Volume 104.8 fL 102.6 fL Mean Corpuscular Hemoglobin 35.7 pg 34.7 pg Mean Corpuscular Hemoglobin Concent 34.1 g/dl 33.8 g/dl Platelet Count 300 K/uL 250 K/uL Mean Platelet Volume 10.3 fL 10.8 fL Neutrophils (%) (Auto) 86.4 % 79.5 % Lymphocytes (%) (Auto) 9.4 % 12.2 % Monocytes (%) (Auto) 3.4 % 6.5 % Eosinophils (%) (Auto) 0.2 % 0.7 % Basophils (%) (Auto) 0.2 % 0.4 % Neutrophils # (Auto) 14.12 K/uL 6.12 K/uL Lymphocytes # (Auto) 1.53 K/uL 0.94 K/uL Monocytes # (Auto) 0.55 K/uL 0.50 K/uL Eosinophils # (Auto) 0.03 K/uL 0.05 K/uL Basophils # (Auto) 0.03 K/uL 0.03 K/uL Test 08/08/16 08:30 BUN/Creatinine Ratio 13.1 Blood Urea Nitrogen 10 mg/dl Creatinine 0.75 mg/dl Micro Results: * 08/07/16 -- Urine Cx -- (+) staph aureus, (+) gram negative bacilli * 08/07/16 -- Blood Cx x 2 -- pending Assessment & Plan: * Patient was initially ordered VANCOMYCIN 1000mg IV q16h, however renal function has improved significantly since admission and is now at baseline. * SCr 1.1 -- > 0.75 , CrCl 57 --> 84 ml/min. * Will adjust dose due to improved renal function to VANCOMYCIN 1000mg IV q12h ( Updated estimated t1/2 ~9 hours). * Will check a VANCOMYCIN trough level on 08/09/16 @ 0400. Pharmacy will continue to follow and will adjust dose/frequency as necessary. Thank you
[2016-08-08 16:00] VITALS: O2SAT 93
[2016-08-08] MEDS ORDERED: CEFTRIAXONE SOD INJ 1 GM in DEXTROSE 5% ADD-VANTAGE 50ML 50 ML IV SCH (16:00)
[2016-08-08] MEDS ORDERED: CEFTRIAXONE SOD INJ 1 GM in DEXTROSE 5% ADD-VANTAGE 50ML 50 ML IV ONE (16:00)
[2016-08-08] MEDS: VANCOMYCIN INJ 1,000 MG in SODIUM CHLORIDE 0.9% 250ML 250 ML IV SCH (16:36)
[2016-08-08 17:37] VITALS: BP 100/65; PULSE 69; TEMP 36.5; O2SAT 92
[2016-08-08 23:30] VITALS: BP 97/66; PULSE 69; TEMP 36.5; O2SAT 92
[2016-08-09] MEDS: HYDROCORTISONE IV 12.5 MG in SYRINGE 0 ML IV SCH ×3 (00:12→16:23)
--- NOTE | 2016-08-09 01:36 | Progress Note ---
Subjective Date of Service: late entry for visit Aug 08, 2016. Subjective Pt evaluation today including: physical exam, chart review, lab review, review of studies (cxr), review of inpatient medication list Pain: none perceived by this MD PO Intake: npo, too altered to take in nourishment Voiding: barnes catheter in place patient sleeping the entire visit unable to obtain ROS due to altered MS no issues per staff Problem List Medical Problems: (1) Altered mental status Status: Acute (2) Closed right humeral fracture Status: Acute (3) UTI (urinary tract infection) Status: Acute Objective Vital Signs Date Time Temp Pulse Resp B/P Pulse Ox O2 Delivery O2 Flow Rate FiO2 08/09/16 00:20 Room Air 08/08/16 23:30 36.5 69 20 97/66 92 Room Air 08/08/16 17:37 36.5 69 18 100/65 92 Room Air 08/08/16 16:00 93 Room Air 08/08/16 09:26 36.4 77 20 109/85 98 08/08/16 08:00 98 Room Air Physical Exam General Appearance: no apparent distress, + pertinent finding (dysmorphic facial features) ENT: + pertinent finding (poor dentition, MM severely dry) Neck: no JVD Respiratory/Chest: no respiratory distress, no accessory muscle use, + decreased breath sounds (bases) Cardiovascular: regular rate, rhythm, no gallop Abdomen: normal bowel sounds, non tender, soft, no organomegaly, + hernia ( midline near the umbilicus) Extremities: no pedal edema Neurologic/Psychiatric: + pertinent finding (sleeping) Laboratory Results Last 24 Hours Test 08/08/16 08:20 08/08/16 08:30 White Blood Count 7.69 K/uL Red Blood Count 3.49 M/uL Hemoglobin 12.1 g/dL Hematocrit 35.8 % Mean Corpuscular Volume 102.6 fL Mean Corpuscular Hemoglobin 34.7 pg Mean Corpuscular Hemoglobin Concent 33.8 g/dl Platelet Count 250 K/uL Mean Platelet Volume 10.8 fL Neutrophils (%) (Auto) 79.5 % Lymphocytes (%) (Auto) 12.2 % Monocytes (%) (Auto) 6.5 % Eosinophils (%) (Auto) 0.7 % Basophils (%) (Auto) 0.4 % Neutrophils # (Auto) 6.12 K/uL Lymphocytes # (Auto) 0.94 K/uL Monocytes # (Auto) 0.50 K/uL Eosinophils # (Auto) 0.05 K/uL Basophils # (Auto) 0.03 K/uL RDW Standard Deviation 59.4 fL RDW Coefficient of Variation 15.7 % Immature Granulocyte % (Auto) 0.7 % Immature Granulocyte # (Auto) 0.05 K/uL Red Blood Cell Morphology Unremarkable Sodium Level 148 mmol/L Potassium Level 3.6 mmol/L Chloride Level 115 mmol/L Carbon Dioxide Level 25 mmol/L Anion Gap 8.0 mmol/L Blood Urea Nitrogen 10 mg/dl Creatinine 0.75 mg/dl Est Creatinine Clear Calc Drug Dose 83.8 ml/min Estimated GFR () 116.4 Estimated GFR (Non- 100.4 BUN/Creatinine Ratio 13.1 Random Glucose 132 mg/dl Calcium Level 8.3 mg/dl Magnesium Level 2.5 mg/dl Vitamin B12 Level 547 pg/mL Folate 15.24 ng/mL Assessment and Plan 61yo male: 1. metabolic encephalopathy - 2nd to UTI, +/- pneumonia, along with hypernatremia - ongoing. 2. UTI - staph, GNR - cont current abx; follow all cx results. 3. aspiration pneumonia - continue zosyn. 4. advanced dementia - noted. 5. Down's syndrome - noted. 6. legal blindness along with deafness - noted. 7. stage 2 buttock pressure ulcer - appreciate enterostomy consultation and recs. 8. neurogenic bladder - continue barnes; need to check when barnes was last exchanged. 9. seizure d/o - cont dilantin IV. 10. low-normal BPs - 2nd to UTI. Cont IV steroids. 11. hypernatremia - improving slowly. Change fluids to 0.45 NS and repeat BMP am. 12. DVT proph - heparin. once mentation is better then obtain speech therapy consult for swallow eval agree that code status needs to be d/w POA Continued [facility] stay due to: multiple IV medications needed Discharge planning: longterm facility
[2016-08-09] MEDS: SODIUM CHLOR 0.45% + 20MEQ KCL 1,000 ML IV SCH ×2 (02:16→10:30)
[2016-08-09] MEDS ORDERED: VANCOMYCIN TROUGH ONE ×2 (03:30→11:30)
[2016-08-09] MEDS: VANCOMYCIN INJ 1,000 MG in SODIUM CHLORIDE 0.9% 250ML 250 ML IV SCH (04:21)
[2016-08-09 04:32] LABS: CALCIUM 7.7 mg/dl (8.5-10.1); CREATININE 0.74 mg/dl (0.60-1.40); POTASSIUM 3.6 mmol/L (3.5-5.1)
[2016-08-09] MEDS: PIPERACILL/TAZOBAC IV 3.375 GM in DEXTROSE 5% 100ML 100 ML IV SCH ×2 (05:30→16:29)
[2016-08-09] MEDS: SODIUM CHLOR 0.9% 10ML FLUSH 20 ML in SYRINGE 0 ML IV SCH ×2 (07:51→16:21)
[2016-08-09] MEDS: PHENYTOIN IV 100 MG in SYRINGE 0 ML IV SCH ×2 (07:51→16:21)
[2016-08-09] MEDS: HEPARIN SOD 5000 UNIT/0.5 ML CARP SQ SCH ×2 (07:53→21:58)
[2016-08-09 08:05] VITALS: BP 96/59; PULSE 76; TEMP 37; O2SAT 97
--- NOTE | 2016-08-09 10:25 | Pharmacy Progress Note ---
Pharmacy Antibiotic Prog Note Date of Service: Aug 09, 2016. Subjective: The patient is currently receiving vancomycin 1000 mg iv q 12 hrs and zosyn 3.375 gm iv q 8 hrs for UTI infection The patient is currently on day # 3 of IV therapy. Objective: Height (Feet): 5 Height (Inches): 0.00 Weight (Kilograms): 64.700 Lab Results (24hrs): Laboratory Tests Test 08/09/16 04:00 BUN/Creatinine Ratio 9.0 Blood Urea Nitrogen 7 mg/dl Creatinine 0.74 mg/dl Assessment & Plan: Patient on vancomycin and zosyn for UTI. Urine culture significant for MRSA >100 ,000 cfu/ml and gm negative rods (only 20,000 cfu/ml) Vancomycin: * Trough level this am therapeutic at ~17 mcg/ml (goal 15-20 mcg/ml for UTI) ; level drawn before 3rd maintenance dose therefore expect true trough to be higher * Will empirically decrease dose to ensure trough is 15-20 mcg/ml to vancomycin 750 mg iv q 12 hrs * Renal function remains stable, CrCl today ~85 ml/min * Will plan to obtain trough prior to the 0400 dose on 08/11 to ensure therapeutic Pharmacy will continue to follow and will adjust dose/frequency as necessary. Thank you
[2016-08-09 11:08] VITALS: O2SAT 97
[2016-08-09] MEDS ORDERED: NURSING VERBAL MED ORDER ONE (15:30)
--- NOTE | 2016-08-09 15:47 | Progress Note ---
Progress Note Date of Service Aug 09, 2016. Progress Note time - [id number] Spoke with Bhupinder from [employer]. Bhupinder is Mr. Gallego's court-appointed POA. Bhupinder confirmed that Mr. Gallego is a level 5 DNR. Gal HANSEN MD
[2016-08-09 16:14] VITALS: BP 98/65; PULSE 64; TEMP 36.5; O2SAT 99
[2016-08-09] MEDS: VANCOMYCIN INJ 750 MG in SODIUM CHLORIDE 0.9% 250ML 250 ML IV SCH (16:30)
[2016-08-09 20:00] VITALS: O2SAT 99
[2016-08-09] MEDS: PHENYTOIN SODIUM ER 100 MG CAP PO SCH (21:58)
[2016-08-09 23:59] VITALS: O2SAT 99
[2016-08-10] MEDS: HYDROCORTISONE IV 12.5 MG in SYRINGE 0 ML IV SCH ×2 (00:27→08:52)
[2016-08-10 00:42] VITALS: BP 91/62; PULSE 64; TEMP 36.4; O2SAT 97
[2016-08-10] MEDS: VANCOMYCIN INJ 750 MG in SODIUM CHLORIDE 0.9% 250ML 250 ML IV SCH ×2 (04:00→17:17)
--- NOTE | 2016-08-10 05:53 | Progress Note ---
Subjective Date of Service: Aug 09, 2016. Subjective Pt evaluation today including: physical exam, chart review, lab review, review of inpatient medication list Pain: nothing perceived by staff PO Intake: ate 100% breakfast, 50% lunch; no dysphagia Voiding: barnes catheter in place no events overnight started to eat I spoke with his POA from [employer] - see separate documentation on such staff report no seizure activity Problem List Medical Problems: (1) Altered mental status Status: Acute (2) Closed right humeral fracture Status: Acute (3) UTI (urinary tract infection) Status: Acute Review of Systems cannot obtain 2nd to non-communicative status Objective Vital Signs Date Time Temp Pulse Resp B/P Pulse Ox O2 Delivery O2 Flow Rate FiO2 08/09/16 11:08 97 Room Air 08/09/16 08:10 Room Air 08/09/16 08:05 37.0 76 12 96/59 97 Room Air 08/09/16 00:20 Room Air 08/08/16 23:30 36.5 69 20 97/66 92 Room Air 08/08/16 17:37 36.5 69 18 100/65 92 Room Air 08/08/16 16:00 93 Room Air Physical Exam General Appearance: no apparent distress ENT: pharynx normal (MMM) Neck: no JVD Respiratory/Chest: lungs clear, no respiratory distress, no accessory muscle use Cardiovascular: regular rate, rhythm, no gallop, no murmur Abdomen: normal bowel sounds, non tender, soft, no organomegaly Extremities: no pedal edema Comments: dysmorphic facial features; +such reflex noted; no purposeful movements Laboratory Results Last 24 Hours Test 08/09/16 04:00 Sodium Level 145 mmol/L Potassium Level 3.6 mmol/L Chloride Level 113 mmol/L Carbon Dioxide Level 27 mmol/L Anion Gap 5.0 mmol/L Blood Urea Nitrogen 7 mg/dl Creatinine 0.74 mg/dl Est Creatinine Clear Calc Drug Dose 85.0 ml/min Estimated GFR () 117.0 Estimated GFR (Non- 101.0 BUN/Creatinine Ratio 9.0 Random Glucose 107 mg/dl Calcium Level 7.7 mg/dl Vancomycin Level Trough 17.2 mcg/ml Assessment and Plan 61yo male: 1. metabolic encephalopathy - 2nd to UTI, +/- pneumonia, along with hypernatremia - we called SNF and he appears to be at his neuropsychiatric baseline. 2. MRSA UTI - continue vancomycin. Stop zosyn. MRSA is sensitive to bactrim. Cont the vanco for now. day #3 of abx. plan 10 days due to the particular pathogen. pseudomonas species in urine - suspect not contributing to his current status. will not Rx this organism. 3. aspiration pneumonia - augmentin would be reasonable to choice for this; start in AM. 4. advanced dementia - noted. 5. Down's syndrome - noted. 6. legal blindness along with deafness - noted. 7. stage 2 buttock pressure ulcer - appreciate enterostomy consultation and recs. 8. neurogenic bladder - continue barnes; barnes exchanged in ER at time of admission. Would replace barnes in a few days. 9. seizure d/o - cont dilantin; convert to PO. 10. low-normal BPs - 2nd to UTI. Cont IV steroids. 11. hypernatremia - resolved. stop fluids. 12. DVT proph - heparin. spoke with POA - see separate note - DNR status Continued [facility] stay due to: multiple IV medications needed Discharge planning: shelter facility
[2016-08-10 07:55] VITALS: BP 129/78; PULSE 67; TEMP 36.9; O2SAT 98
[2016-08-10 08:04] LABS: BASO % 0.6 %; BASO ABS # 0.02 K/uL (0-0.2); COMPLETE YES; EOS % 1.1 %; HEMATOCRIT 33.9 % (42-52); IG% 0.6 %; LYMPH % 33.2 %; LYMPH ABS # 1.18 K/uL (1.2-3.4); MEAN CELL VOLUME 97.7 fL (80-100); MEAN CORPUSCULAR HEMOGLOBIN 34.6 pg (25-34); MEAN CORPUSCULAR HGB CONC 35.4 g/dl (32-36); MEAN PLATELET VOLUME 10.4 fL (7.4-10.4); MONO % 10.1 %; NEUT % 54.4 %; PLATELET COUNT 259 K/uL (130-400); RED BLOOD COUNT 3.47 M/uL (4.7-6.1); WHITE BLOOD COUNT 3.55 K/uL (4.8-10.8)
[2016-08-10 08:24] LABS: BUN/CREATININE RATIO 6.6 (10-20); CALCIUM 7.7 mg/dl (8.5-10.1); CREATININE 0.5 mg/dl (0.60-1.40)
[2016-08-10] MEDS: PHENYTOIN SODIUM ER 100 MG CAP PO SCH ×3 (08:51→20:33)
[2016-08-10] MEDS: AMOXICILLIN/CLAVULANATE TAB 875 MG TAB PO SCH ×2 (08:51→17:17)
[2016-08-10] MEDS: HEPARIN SOD 5000 UNIT/0.5 ML CARP SQ SCH ×2 (08:56→20:36)
[2016-08-10 16:01] VITALS: BP 110/71; PULSE 63; TEMP 36.3; O2SAT 98
--- NOTE | 2016-08-10 21:56 | Progress Note ---
Subjective Date of Service: Aug 10, 2016. Subjective Pt evaluation today including: physical exam, chart review, lab review Pain: nothing perceived by staff PO Intake: good per staff Voiding: branes catheter in place no issues overnight Problem List Medical Problems: (1) Altered mental status Status: Acute (2) Closed right humeral fracture Status: Acute (3) UTI (urinary tract infection) Status: Acute Review of Systems cannot obtain 2nd to noncommunicative status Objective Vital Signs Date Time Temp Pulse Resp B/P Pulse Ox O2 Delivery O2 Flow Rate FiO2 08/10/16 16:01 36.3 63 20 110/71 98 08/10/16 16:00 Room Air 08/10/16 08:00 Room Air 08/10/16 07:55 36.9 67 16 129/78 98 Room Air 08/10/16 00:42 36.4 64 18 91/62 97 Room Air 08/09/16 23:59 99 Room Air Physical Exam General Appearance: no apparent distress ENT: pharynx normal Neck: no JVD Respiratory/Chest: lungs clear, no respiratory distress, no accessory muscle use Cardiovascular: regular rate, rhythm, no gallop, no murmur Abdomen: normal bowel sounds, non tender, soft, no organomegaly Extremities: no pedal edema Neurologic/Psychiatric: + pertinent finding (unresponsive, but shows primitive reflexes especially suck reflex ) Comments: down's features including widely spaced toes (1 & 2), nuccal folds, upslanting palpebral fissures, small ears, etc. Laboratory Results Last 24 Hours Test 08/10/16 07:25 White Blood Count 3.55 K/uL Red Blood Count 3.47 M/uL Hemoglobin 12.0 g/dL Hematocrit 33.9 % Mean Corpuscular Volume 97.7 fL Mean Corpuscular Hemoglobin 34.6 pg Mean Corpuscular Hemoglobin Concent 35.4 g/dl Platelet Count 259 K/uL Mean Platelet Volume 10.4 fL Neutrophils (%) (Auto) 54.4 % Lymphocytes (%) (Auto) 33.2 % Monocytes (%) (Auto) 10.1 % Eosinophils (%) (Auto) 1.1 % Basophils (%) (Auto) 0.6 % Neutrophils # (Auto) 1.93 K/uL Lymphocytes # (Auto) 1.18 K/uL Monocytes # (Auto) 0.36 K/uL Eosinophils # (Auto) 0.04 K/uL Basophils # (Auto) 0.02 K/uL RDW Standard Deviation 52.7 fL RDW Coefficient of Variation 14.8 % Immature Granulocyte % (Auto) 0.6 % Immature Granulocyte # (Auto) 0.02 K/uL Sodium Level 146 mmol/L Potassium Level 4.0 mmol/L Chloride Level 117 mmol/L Carbon Dioxide Level 21 mmol/L Anion Gap 8.0 mmol/L Blood Urea Nitrogen 3 mg/dl Creatinine 0.50 mg/dl Est Creatinine Clear Calc Drug Dose 125.7 ml/min Estimated GFR () 137.5 Estimated GFR (Non- 118.6 BUN/Creatinine Ratio 6.6 Random Glucose 89 mg/dl Calcium Level 7.7 mg/dl Assessment and Plan 61yo male: 1. metabolic encephalopathy - 2nd to UTI, +/- pneumonia, along with hypernatremia - we called SNF and he appears to be at his neuropsychiatric baseline. 2. MRSA UTI - continue vancomycin. day #4 of abx. plan 10 days; transition to bactrim in AM. pseudomonas species in urine - suspect not contributing to his current status. will not Rx this organism. 3. aspiration pneumonia - augmentin would be reasonable choice for this; started today. 4. advanced dementia - noted. 5. Down's syndrome - noted. 6. legal blindness along with deafness - noted. 7. stage 2 buttock pressure ulcer - appreciate enterostomy consultation and recs. 8. neurogenic bladder - replace barnes tomorrow. 9. seizure d/o - cont dilantin. no seizures noted by staff. 10. low-normal BPs - 2nd to UTI. resolved d/c IV steroids convert to PO prednisone 11. hypernatremia - resolved. 12. DVT proph - heparin. likely d/c to SNF tomorrow Continued [facility] stay due to: multiple IV medications needed Discharge planning: snf facility
[2016-08-11 00:23] VITALS: BP 113/65; PULSE 69; TEMP 36.6; O2SAT 97
[2016-08-11] MEDS ORDERED: VANCOMYCIN TROUGH ONE (03:30)
[2016-08-11 03:36] LABS: BASO % 0.2 %; BASO ABS # 0.01 K/uL (0-0.2); COMPLETE YES; EOS % 0.2 %; HEMATOCRIT 37.1 % (42-52); IG% 1.1 %; LYMPH % 19.8 %; LYMPH ABS # 0.89 K/uL (1.2-3.4); MEAN CELL VOLUME 100.3 fL (80-100); MEAN CORPUSCULAR HEMOGLOBIN 35.7 pg (25-34); MEAN CORPUSCULAR HGB CONC 35.6 g/dl (32-36); MEAN PLATELET VOLUME 10.4 fL (7.4-10.4); MONO % 8.2 %; NEUT % 70.5 %; PLATELET COUNT 270 K/uL (130-400); WHITE BLOOD COUNT 4.49 K/uL (4.8-10.8)
[2016-08-11 04:00] LABS: BUN/CREATININE RATIO 5.2 (10-20); CALCIUM 8.4 mg/dl (8.5-10.1); CREATININE 0.59 mg/dl (0.60-1.40); POTASSIUM 3.6 mmol/L (3.5-5.1)
[2016-08-11] MEDS: VANCOMYCIN INJ 750 MG in SODIUM CHLORIDE 0.9% 250ML 250 ML IV SCH ×2 (04:20→15:59)
[2016-08-11 07:31] VITALS: BP 112/62; PULSE 76; TEMP 36.8; O2SAT 99
[2016-08-11] MEDS: AMOXICILLIN/CLAVULANATE TAB 875 MG TAB PO SCH ×2 (08:00→17:21)
[2016-08-11] MEDS: PHENYTOIN SODIUM ER 100 MG CAP PO SCH ×3 (08:01→20:35)
[2016-08-11] MEDS: HEPARIN SOD 5000 UNIT/0.5 ML CARP SQ SCH ×2 (08:02→20:34)
[2016-08-11 14:09] LABS: URINE APPEARANCE TURBID (CLEAR); URINE BILIRUBIN NEG (NEG); URINE COLOR DK YELLOW; URINE EPITHELIAL CELL AUTO >30 /lpf (0-5); URINE NITRITE NEG (NEG); URINE SPECIFIC GRAVITY 1.024 (1.000-1.030); UROBILINOGEN NEG (NEG)
[2016-08-11 14:12] LABS: MANUAL MICROSCOPIC REQUIRED? NO; REVIEW REQ? YES
[2016-08-11 15:06] VITALS: BP 115/72; PULSE 70; TEMP 36.5; O2SAT 98
--- NOTE | 2016-08-11 19:39 | DIAGNOSTIC IMAGING REPORT ---
KUB CLINICAL HISTORY: Flank pain COMPARISON STUDY: 07/07/2013 FINDINGS: There is no pathologic bowel dilatation. There are no calcification suspicious for renal calculi. Pelvic basin calcifications are felt to reflect phleboliths. There are postsurgical changes of a bipolar right hip arthroplasty. There is stable superior lateral subluxation left hip with secondary advanced arthritic change. There is an IVC filter at the L2 level. IMPRESSION: 1. No evidence of pathologic bowel dilatation 2. No urinary tract calculi identified on conventional radiographic imaging Electronically signed by: Kareem Rawls M.D. 08/11/2016 7:38 PM Dictated Date/Time: 08/11/2016 7:37 PM
[2016-08-11 23:53] VITALS: BP 115/75; PULSE 65; TEMP 36.8; O2SAT 98
[2016-08-12] MEDS: VANCOMYCIN INJ 750 MG in SODIUM CHLORIDE 0.9% 250ML 250 ML IV SCH (03:50)
[2016-08-12 07:28] VITALS: BP 142/76; PULSE 70; TEMP 37; O2SAT 95
[2016-08-12] MEDS: PHENYTOIN SODIUM ER 100 MG CAP PO SCH ×2 (08:44→14:21)
[2016-08-12] MEDS: AMOXICILLIN/CLAVULANATE TAB 875 MG TAB PO SCH (08:44)
[2016-08-12] MEDS: HEPARIN SOD 5000 UNIT/0.5 ML CARP SQ SCH (08:45)
[2016-08-12 11:49] VITALS: BP 142/76; PULSE 70; TEMP 37; O2SAT 95
[2016-08-12] MEDS ORDERED: AMOX1TAB43 PO (12:04)
[2016-08-12] MEDS ORDERED: SULF800T23 PO ×2 (12:04)
--- NOTE | 2016-08-12 12:21 | Discharge Instructions ---
Discharge Instructions Date of Service Aug 12, 2016. Admission Reason for Admission: Metabolic Encephalopathy Discharge Discharge Diagnosis / Problem: metabolic encephalopathy, UTI, aspiration PNA Discharge Goals Goal(s): Improve function Activity Recommendations Activity Level: Up Ad Marianela Exercise/Sports Limitations: as tolerated . Additional Information Patient informed of condition: Yes Advance Directives: No DNR: Yes Level of Care: Skilled Communicable Disease: Yes (MRSA ) Prognosis: Stable Barnes Catheter: Yes Instructions / Follow-Up Instructions / Follow-Up You were treated in the hospital for a UTI and aspiration pneumonia The following changes/additions have been made to your medication list: -Augmentin 875 mg twice daily-->finish course -Bactrim DS twice daily-->finish course The barnes catheter should be changed every 2 weeks. It was last changed on Wednesday 08/09 There is a stage 2 pressure ulcer in the sacral area that is being treated with optifoam every 3 days. Please turn patient frequently Diet should be PUREED WITH NECTAR THICK LIQUIDS Please follow up with your primary care physician within 1 week Call your doctor or return to the emergency department if you have any of the following symptoms: -Fever of 101F or greater -Persistent vomiting - Persistent diarrhea -Lethargy -weakness on one side of your body THE PATIENT'S CODE STATUS HAS BEEN CHANGED TO DO NOT RESUSCITATE Current Hospital Diet Patient's current hospital diet: N/A Discharge Diet Recommended Diet: Regular Diet Diet Texture: Pureed (blended smooth) Liquid Consistency: [place] Thick Procedures Procedures Performed: cxr SINGLE VIEW CHEST CLINICAL HISTORY: Aspiration. FINDINGS: An AP, portable, upright chest radiograph is compared to study dated 08/07/2016 and correlated with chest CT dated 12/19/2012. The examination is degraded by portable technique and patient rotation. The heart is top normal for projection. There is prominence of the central pulmonary vasculature. There is minimal bibasilar atelectasis. There is developing patchy airspace consolidation at both lung bases, right greater than left. No large pleural effusion or pneumothorax is seen. The skeletal structures are osteopenic. The bony thorax is grossly intact. IMPRESSION: 1. There is persistent prominence of the central pulmonary vasculature. Cortical clinically for evidence of mild congestive failure. 2. There is developing patchy airspace consolidation at both lung bases, right greater than left. This could represent aspiration pneumonitis/developing pneumonia as clinically suspected. Electronically signed by: Lucius Stiles M.D. Pending Studies Studies pending at discharge: no Physician Orders On Transfer POLST Discussion: without POLST completion Medical Emergencies . Who to Call and When: Medical Emergencies: If at any time you feel your situation is an emergency, please call 911 immediately. . Non-Emergent Contact Non-Emergency issues call your: Primary Care Provider . . "Provider Documentation" section prepared by Jessie Grant. Core Measure Problem Core Measures: None
--- NOTE | 2016-08-12 12:37 | Discharge Summary ---
Discharge Summary Date of Service Aug 12, 2016. Discharge Summary Admission Date: Aug 07, 2016 at 16:08 Discharge Date: Aug 12, 2016 Discharge Disposition: assisted facility Principal Diagnosis: metabolic encephalopathy, UTI, aspiration PNA Problems/Secondary Diagnoses: hypernatremia down's syndrome legally blind deaf Immunizations: Have You Had Influenza Vaccine: Yes Influenza Vaccine Date: Jan 25, 2015 History of Tetanus Vaccine?: Yes Tetanus Immunization Date: Oct 20, 2009 Pneumococcal Date: Feb 19, 2010 Procedures: SINGLE VIEW CHEST CLINICAL HISTORY: Aspiration. FINDINGS: An AP, portable, upright chest radiograph is compared to study dated 08/07/2016 and correlated with chest CT dated 12/19/2012. The examination is degraded by portable technique and patient rotation. The heart is top normal for projection. There is prominence of the central pulmonary vasculature. There is minimal bibasilar atelectasis. There is developing patchy airspace consolidation at both lung bases, right greater than left. No large pleural effusion or pneumothorax is seen. The skeletal structures are osteopenic. The bony thorax is grossly intact. IMPRESSION: 1. There is persistent prominence of the central pulmonary vasculature. Cortical clinically for evidence of mild congestive failure. 2. There is developing patchy airspace consolidation at both lung bases, right greater than left. This could represent aspiration pneumonitis/developing pneumonia as clinically suspected. Electronically signed by: Lucius Stiles M.D. Consultations: Wound care Speech therapy Medication Reconciliation New Medications: Sulfamethoxazole-Trimethoprim (Bactrim Ds 800MG/160MG) 1 Tab Tab 1 TAB PO BID for 5 Days, #10 TAB Amoxicillin & Pot Clavulanate (Amoxicillin/Clavulanate P) 1 Tab Tab 875 MG PO BIDM for 5 Days, #10 TAB Continued Medications: Acetaminophen (Tylenol) 325 Mg Tab 650 MG PO Q6 PRN for Pain or Fever max 3gm/24hr Alum & Mag Hydrox-Simethicone (Mylanta) 1 Arabella Arabella 30 ML PO BID PRN for DYSPEPSIA Bisacodyl (Bisacodyl Laxative) 10 Mg Sup 10 MG RE DAILY PRN for Constipation Carvedilol (Coreg) 3.125 Mg Tab 3.125 MG PO Q12, TAB Ipratropium-Albuterol (Duoneb) 3 Ml Nebu 1 TREATMENT INH Q8 PRN for Cough, INHA Loratadine (Claritin) 10 Mg Tab 10 MG PO QAM Losartan Potassium (Cozaar) 25 Mg Tab 25 MG PO QAM, TAB Methenamine Hippurate (Methenamine Hippurate) 1 Gm Tab 1 GM PO QAM Multiple Vitamins W/ Minerals (Therems M) 1 Tab Tab 1 TAB PO QAM Phenytoin Sodium (Dilantin) 100 Mg Cap 100 MG PO TID Phosphorus (K-Phos Neutral) 250 Mg Tab 250 MG PO BID Potassium Chloride (K-Tabs) 10 Meq Tab 10 MEQ PO DAILY Ranitidine (Zantac) 150 Mg Tab 150 MG PO HS, TAB Sennosides-Docusate Sodium (Senna S) 1 Tab Tab 1 TAB PO QAM Sodium Phosphate/Biphosphate (Fleet Enema) Luz Marina 1 EA MD UD PRN for no bm after suppository, BTL Discontinued Medications: Acetaminophen (Tylenol) 500 Mg Tab 500 MG PO TID max 3gm/24hrs Discharge Exam Patient is nonverbal Physical Exam: General Appearance: no apparent distress (more alert) ENT: + pertinent finding (exudate on tongue is much improved) Respiratory/Chest: lungs clear Cardiovascular: regular rate, rhythm Abdomen / GI: normal bowel sounds, non tender, soft Extremities: no calf tenderness, no pedal edema Neurologic/Psychiatric: + pertinent finding (does not follow commands. Nonverbal.) Skin: warm/dry Hospital Course 61-year-old male with significant intellectual impairment, Down syndrome transferred to the emergency department with reportedly altered mental status. Metabolic encephalopathy likely secondary to UTI-CAUTI and aspiration PNA -Treated with broad spectrum antibiotics:Vanc/zosyn -urine cx E. coli-sens to bactrim. Rx for bactrim total of 10 day course of ABX -Given Rx for Augmentin 875 mg BID x 5 more days (total of 7) for aspiration PNA -catheter should be changed every 2-3 weeks -DIET: PUREED WITH NECTAR THICK LIQUIDS Hypernatremia-likely secondary to dehydration -treated with D5W. Improved History of seizure disorder -Dilantin level low- 2.9. ? maybe not getting at SNF secondary to AMS -Continue Dilantin 100 mg TID Pressure ulcer on the buttock stage II -Wound consult placed -optifoam dressing Hypertension -Continue carvedilol 3.125 mg po BID -Continue Cozaar 25 mg po QAM Hydralazine 10 mg IV q 6 hr PRN History of neurogenic bladder/urinary retention with indwelling Barnes catheter -barnes changed in ER -intermittently change as noted above Hx Graves dz -TSH WNL in the ER Hx DVT-IVC filter in place -proph heparin CODE STATUS -CHANGED TO DNR ON THIS ADMISSION Total Time Spent: Greater than 30 minutes This includes examination of the patient, discharge planning, medication reconciliation, and communication with other providers. Discharge Instructions Please refer to the electronic Patient Visit Report (Discharge Instructions) for additional information.
--- NOTE | 2016-08-15 14:33 | EDITING REQUIRED CODING QUERY ---
SEPSIS Dear Dr. Onofre, To promote full compliance with coding requirements relating to patient care, physician participation is requested in all cases of associate professor of media arts uncertainty. Please assist us with the question(s) below: In responding to this query, please exercise your independent professional judgement. The fact that a question is asked does not imply that any particular answer is desired or expected. We appreciate your clarification on this issue. Please clarify Sepsis - Sepsis documented on H and P but not on Discharge Summary. Medical documentation: 61-year-old male with severe intellectual disability and Down syndrome, bedbound with chronic indwelling Lizama catheter, here with UTI and sepsis, acute metabolic encephalopathy. He has a history of MRSA in the past and comes from a [place] [facility]. ( ) Bacteremia (Nonspecific laboratory finding of bacteria in the blood) Specify Organism () Present on Admission () Not present on admission () Unable to clinically determine ( ) Septicemia (Systemic disease associated with the presence of pathogenic microorganisms in the blood): Specify Organism () Present on Admission () Not present on admission () Unable to clinically determine (x ) Sepsis Specify Organism Specify Associated Condition/Diagnosis (x) Present on Admission () Not present on admission () Unable to clinically determine ( ) Severe Sepsis (Sepsis associated with acute organ dysfunction) Specify Organism Specify Associated Condition/Diagnosis () Present on Admission () Not present on admission () Unable to clinically determine ( ) Septic Shock (Severe sepsis with acute circulatory failure, unexplained by other causes) () Present on Admission () Not present on admission () Unable to clinically determine ( ) Other, patient has: ( ) Sepsis was Ruled Out. Thank you for your time. Christie Mendosa, AREA DEVELOPMENT MANAGER
== END 2016-08-12 15:19 | DRG 871 ==
LOC: ENRESERVDT → ENRESERVTM → EDBD 11:54 → C.EDB 11:55 → C.MS2W 16:08
PROVIDERS: ADMIT Family Medicine; ATTEND Internal Medicine
DX: A41.9 Sepsis, unspecified organism (principal); J69.0 Pneumonitis due to inhalation of food and vomit; G93.41 Metabolic encephalopathy; N39.0 Urinary tract infection, site not specified; E87.0 Hyperosmolality and hypernatremia; F72 Severe intellectual disabilities; E27.40 Unspecified adrenocortical insufficiency; T83.518A Infection and inflammatory reaction due to other urinary catheter, initial encounter; G40.909 Epilepsy, unspecified, not intractable, without status epilepticus; Q90.9 Down syndrome, unspecified; Z96.641 Presence of right artificial hip joint; N31.9 Neuromuscular dysfunction of bladder, unspecified; F03.90 Unspecified dementia, unspecified severity, without behavioral disturbance, psychotic disturbance, mood disturbance, and anxiety; H54.8 Legal blindness, as defined in USA; L89.302 Pressure ulcer of unspecified buttock, stage 2; B96.5 Pseudomonas (aeruginosa) (mallei) (pseudomallei) as the cause of diseases classified elsewhere; I10 Essential (primary) hypertension; I95.9 Hypotension, unspecified; Z66 Do not resuscitate; B95.62 Methicillin resistant Staphylococcus aureus infection as the cause of diseases classified elsewhere; E86.0 Dehydration; B96.20 Unspecified Escherichia coli [E. coli] as the cause of diseases classified elsewhere; H91.90 Unspecified hearing loss, unspecified ear; R63.8 Other symptoms and signs concerning food and fluid intake; D72.829 Elevated white blood cell count, unspecified; R33.9 Retention of urine, unspecified; Z96.0 Presence of urogenital implants; D75.89 Other specified diseases of blood and blood-forming organs; Z86.39 Personal history of other endocrine, nutritional and metabolic disease; Z86.718 Personal history of other venous thrombosis and embolism; Z95.828 Presence of other vascular implants and grafts; Z74.01 Bed confinement status; Z79.899 Other long term (current) drug therapy